=== PATIENT | female | born 1990 | race Caucasian/White ===

== ENCOUNTER 2024-05-22 19:41 | Outpatient (OUT) | payer BC, MEDICAID, SELFPAY | END 2024-05-22 19:42 | disposition home or self-care (01) | LOC: SLEEP 19:41 | PROVIDERS: PCP Psychiatry & Neurology Neurology; Visit Provider Psychiatry & Neurology Neurology | DX: G47.33 Obstructive sleep apnea (adult) (pediatric) (principal); G47.11 Idiopathic hypersomnia with long sleep time | CPT/HCPCS: 95810 ==

== ENCOUNTER 2024-06-20 21:00 | Outpatient (OUT) | payer BC, MEDICAID, SELFPAY ==
--- OUTSIDE RECORDS SUMMARY | 2024-06-20 21:03 | XMS_ITS | CCD ---
Author Organization [facility] Care Team Providers Care [place] Man Name Role Phone JASMIN LAST Attending Unavailable Medications Current Medications Medication Drug Class(es) Dates Sig (Normalized) Sig (Original) busPIRone hydrochloride 10 mg oral tablet (3 sources) Start: 11-11-2023 take 20 mg by mouth twice daily Buspirone Active 20 MG PO Twice daily November 11, 2023 12:00am clonazePAM 1 mg oral tablet (5 sources) Benzodiazepine Start: 02-03-2024 take 1 mg by mouth once daily Clonazepam Active 1 MG PO Daily February 03, 2024 12:00am Start: 11-11-2023 End: 11-11-2023 take 1 mg by mouth once daily at bedtime Clonazepam Discontinued 1 MG PO Daily at bedtime November 11, 2023 12:00am November 11, 2023 11:10am nystatin [id number] unt/ml topical cream (1 source) Polyene Antifungal Start: 02-15-2024 Nystatin Active 1 APPLIC TOPICAL Twice daily February 15, 2024 12:00am PARoxetine hydrochloride 40 mg oral tablet (3 sources) Serotonin Reuptake Inhibitor Start: 11-11-2023 take 40 mg by mouth once daily at bedtime Paroxetine Hcl Active 40 MG PO Daily at bedtime November 11, 2023 12:00am Completed/Discontinued Medications Medication Drug Class(es) Dates Sig (Normalized) Sig (Original) ALPRAZolam 0.5 mg oral tablet (5 sources) Benzodiazepine Start: 01-27-2024 End: 02-03-2024 take 1 tablet by mouth twice daily Alprazolam (Xanax) 0.5 mg tablet Discontinued 0.5 MG PO Twice daily 14 January 27, 2024 1:44pm February 03, 2024 1:43pm Start: 11-11-2023 End: 01-27-2024 take 1 tablet by mouth once daily Alprazolam (Xanax) 0.5 mg tablet Discontinued 0.5 MG PO Daily 06 14November 11, 2023 12:00am January 27, 2024 1:50pm amoxicillin 875 mg / clavulanate 125 mg oral tablet (2 sources) Penicillin-class Antibacterial Start: 02-03-2024 End: 02-15-2024 take 1 tablet by mouth twice daily Amoxicillin-Pot Clavulanate Discontinued 1 TAB PO Twice daily 04 06February 03, 2024 12:00am February 15, 2024 11:36am armodafinil 250 mg oral tablet (9 sources) Start: 11-11-2023 End: 02-11-2024 take 250 mg by mouth once daily in the morning Armodafinil Discontinued 250 MG PO Every morning November 11, 2023 11:12am December 31, 2023 9:11am Problems Problem Classification Problem Date Documented Da te Episodic/Chronic Abdominal pain (2 sources) Abdominal pain; Translations: [Unspecified abdominal pain] 02-15-2024 Episodic Anxiety disorders (20 sources) Generalized anxiety disorder; Translations: [Generalized anxiety disorder] 11-11-2023 Chronic Disorders of lipid metabolism (3 sources) Hyperlipidemia; Translations: [Hyperlipidemia, unspecified] 11-11-2023 Chronic Disorders of teeth and jaw (4 sources) Dental abscess; Translations: [Periapical abscess without sinus] 02-03-2024 Episodic Disorders usually diagnosed in infancy, childhood, or adolescence (6 sources) Autism spectrum disorder; Translations: [Autistic disorder] 11-11-2023 Chronic Impulse control disorders, NEC (6 sources) Trichotillomania; 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] 11-11-2023 Chronic Mood disorders (3 sources) Depressive disorder; Translations: [Depression] 11-11-2023 Chronic Mycoses (2 sources) Candidiasis; Translations: [Candidiasis, unspecified] 02-15-2024 Episodic Nausea and vomiting (2 sources) Nausea and vomiting; Translations: [Nausea with vomiting, unspecified] 02-15-2024 Episodic Other nervous system disorders (3 sources) Narcolepsy; Translations: [Narcolepsy without cataplexy] 11-11-2023 Chronic Other nervous system disorders (2 sources) Narcolepsy without cataplexy; Translations: [Narcolepsy, without cataplexy] 11-11-2023 Chronic Other nervous system disorders (2 sources) H/O: respiratory disease; Translations: [Personal history of other diseases of the nervous system and sense organs] 11-11-2023 Episodic Other nervous system disorders (1 source) Personal history of other diseases of the nervous system and sense organs; Translations: [Personal history of other specified diseases] 11-11-2023 Episodic Other nutritional; endocrine; and metabolic disorders (1 source) Altered appetite; Translations: [Other symptoms and signs concerning food and fluid intake] 02-15-2024 Episodic Other nutritional; endocrine; and metabolic disorders (1 source) Other symptoms and signs concerning food and fluid intake; Translations: [Other symptoms concerning nutrition, metabolism, and development] 02-15-2024 Episodic Residual codes; unclassified (2 sources) Hypersomnia; Translations: [Hypersomnia, unspecified] 11-11-2023 Chronic Residual codes; unclassified (1 source) Hypersomnia, unspecified; Translations: [Hypersomnia, unspecified] 11-11-2023 Chronic Vital Signs Date Time Vital Sign Value Performing Clinician Faci lity 02-15-2024 11:35-0400 Body height 167.64 cm [facility] 02-15-2024 11:35-0400 Diastolic blood pressure 78 mm[Hg] [facility] 02-15-2024 11:35-0400 Heart rate 80 /min [facility] 02-15-2024 11:35-0400 SaO2% (BldA) [Mass fraction] 98 % [facility] 02-15-2024 11:35-0400 Systolic blood pressure 128 mm[Hg] [facility] 02-03-2024 13:27-0400 Body height 167.64 cm [facility] 02-03-2024 13:27-0400 Diastolic blood pressure 80 mm[Hg] [facility] 02-03-2024 13:27-0400 Heart rate 76 /min [facility] 02-03-2024 13:27-0400 SaO2% (BldA) [Mass fraction] 98 % [facility] 02-03-2024 13:27-0400 Systolic blood pressure 124 mm[Hg] [facility] 11-11-2023 10:31-0400 Body height 167.64 cm [facility] 11-11-2023 10:31-0400 Body mass index (BMI) [Ratio] 47.2 kg/m2 [facility] 11-11-2023 10:31-0400 Body weight 132.9 kg [facility] 11-11-2023 10:31-0400 Diastolic blood pressure 84 mm[Hg] [facility] 11-11-2023 10:31-0400 Heart rate 72 /min [facility] 11-11-2023 10:31-0400 SaO2% (BldA) [Mass fraction] 98 % [facility] 11-11-2023 10:31-0400 Systolic blood pressure 122 mm[Hg] [facility] Encounters Encounter Date Encounter Type Care Provider Facility Start: 02-15-2024 End: 02-15-2024 ambulatory [facility] Work Phone: Start: 02-15-2024 End: 02-15-2024 Patient encounter procedure [facility] ys[facility] Work Phone: Start: 02-03-2024 End: 02-03-2024 ambulatory [facility] Work Phone: Start: 02-03-2024 End: 02-03-2024 Patient encounter procedure [facility] ysician [facility] Work Phone: Start: 12-21-2023 End: 12-21-2023 ambulatory JASMIN LAST Not Available Start: 11-11-2023 End: 11-11-2023 ambulatory [facility] Work Phone: Start: 11-11-2023 End: 11-11-2023 Patient encounter procedure [facility]sician [facility] Work Phone: Plan of Treatment Date Care Activity Detail Author Start: 02-03-2024 Patient referral [facility] Work Phone: CT Abdomen and Pelvi s WO and W contrast IV [facility] Patient referral [facility] Work Phone: Payers Date Payer Category Payer Medicaid [id number] 2023 Unknown [id number] 1990 Unknown [id number] Private Health Insurance [facility] [id number] Social History Date Type Detail Facility Start: 11-11-2023 Tobacco smoking stat [facility] Never smoked tobacco (finding) [facility] Start: 1990 Sex Assigned At Female F [facility] Discharge instructions 02-03-2024 Note Date & Type Note Facility 02-03-2024 Hospital Discharg e instructions Ambulatory OrdersReferral to Psychiatry Time Frame: 02/03/24, Location: None Selected [facility] Work Phone: Evaluation note Note Date & Type Note Facility Evaluation note Diagnosis Onset Date Generalized anxiety disorder acute Narcolepsy acute Panic disorder acute [facility] Work Phone: Evaluation note Note Date & Type Note Facility Evaluation note Diagnosis Onset Date Agoraphobia acute Autism acute Depression acute Generalized anxiety disorder acute History of sleep apnea acute Hyperlipidemia acute Narcolepsy acute OCD (obsessive compulsive disorder) acute Panic disorder acute Sleeping excessive acute Trichotillomania acute Autism acute Dental abscess acute Generalized anxiety disorder acute OCD (obsessive compulsive disorder) acute Panic attacks acute Panic disorder acute Trichotillomania acute [facility] Work Phone: Evaluation note Note Date & Type Note Facility Evaluation note Diagnosis Onset Date Autism acute Dental abscess acute Generalized anxiety disorder acute OCD (obsessive compulsive disorder) acute Panic attacks acute Panic disorder acute Trichotillomania acute Abdominal pain acute Alteration in appetite acute Marla infection acute Nausea & vomiting acute Trichotillomania acute [facility] Work Phone: Chief Complaint and Reason for Visit Chief Complaint establish Reason for Visit Generalized anxiety disorder Narcolepsy Panic disorder Chief Complaint establish anxiety Reason for Visit Agoraphobia Autism Depression Generalized anxiety disorder History of sleep apnea Hyperlipidemia Narcolepsy OCD (obsessive compulsive disorder) Panic disorder Sleeping excessive Trichotillomania Autism Dental abscess Generalized anxiety disorder OCD (obsessive compulsive disorder) Panic attacks Panic disorder Trichotillomania Chief Complaint anxiety stomach concerns Reason for Visit Autism Dental abscess Generalized anxiety disorder OCD (obsessive compulsive disorder) Panic attacks Panic disorder Trichotillomania Abdominal pain Alteration in appetite Marla infection Nausea & vomiting Trichotillomania Advance Directives Advance Directive Response Recorded Date/ Time Advance Directives No November 07 11:35am Summary Purpose Family History No Family History Records Found Additional Source Comments Care Teams (unrecognized sec tion and content) Team Status: Active Member Role Status Dates Fiona Coker APRN [employer] Primary Care Provider Active Team Status: Inactive Member Role Status Dates Fiona Coker APRN [employer] Primary Care Provider, Attending Provider Active Start: November 11, 2023 End: November 11, 2023 Team Status: Inactive Member Role Status Dates Fiona Coker APRN [employer] Primary Care Provider, Attending Provider Active Start: February 03, 2024 End: February 03, 2024 Team Status: Inactive Member Role Status Dates Fiona Coker APRN [employer] Primary Care Provider, Attending Provider Active Start: February 15, 2024 End: February 15, 2024 Goals (unrecognized section and content) Goals may be documented in a n alternate sectionGoals may be documented in an alternate sectionGoals may be documented in an alternate section INFORMATION SOURCE (unrecogn ized section and content) DATE CREATED AUTHOR 12/22/2023 [facility] FOR RECORDS PERTAINING TO PATIENTS WHO ARE OR HAVE BEEN ENROLLED IN A CHEMICAL DEPENDENCY/SUBSTANCEABUSE PROGRAM, SOME INFORMATION MAY BE OMITTED. This clinical summary was aggregated from multiple sources. Caution should be exercised in using it in the provision of clinical care. This summary normalizes information from multiple sources, and as a consequence, information in this document may materially change the coding, format and clinical context of patient data. In addition, data may be omitted in some cases. CLINICAL DECISIONS SHOULD BE BASED ON THE PRIMARY CLINICAL RECORDS. [facility]. provides no warranty or guarantee of the accuracy or completeness of information in this document.
== END 2024-06-20 21:01 | disposition home or self-care (01) ==
LOC: SLEEP 21:00
PROVIDERS: PCP Psychiatry & Neurology Neurology; Visit Provider Psychiatry & Neurology Neurology
DX: G47.33 Obstructive sleep apnea (adult) (pediatric) (principal)
CPT/HCPCS: 95811

== ENCOUNTER 2024-07-19 10:14 | Outpatient (OUT) | payer BC, MEDICAID, SELFPAY ==
--- OUTSIDE RECORDS SUMMARY | 2024-07-19 10:18 | XMS_ITS | CCD ---
Author Organization [facility] Inform ion Partnership [facility] Care Team Providers Care Binding Stitcher Name Role Phone Sheela CALVERT, Fiona Nicole Unavailable Unallocated , Noms Provider Primary Care Provi sendy Jasmin Last DO Unavailable JASMIN LAST Attending Unavailable JASMIN LAST Attending Unavailable Allergies Allergy Classification Reported Allergen(s) Allergy Type Date of Onset Reaction(s) Facility (3 sources) modafinil Drug Allergy 0 Itching, Rash [facility] (3 sources) Non-steroidal anti-inflammato ry agent Drug Intolerance 1 Unknown [facility] (3 sources) Norgestimate-Et h Estradiol Drug Intolerance 9 Nausea Only [facility] Medications Current Medications Medication Drug Class(es) Dates Sig (Normalized) Sig (Original) brexpiprazole 1 mg oral tablet (2 sources) Atypical Antipsychotic Brexpiprazole (Rexulti) 1 MG tablet Take 1 mg by mouth titrating Active busPIRone hydrochloride 10 mg oral tablet (6 sources) Start: 11-11-2023 take 20 mg by mouth twice daily Buspirone Active 20 MG PO Twice daily November 11, 2023 12:00am take 2 tablets by mouth in the m orning busPIRone (Buspar) 10 MG tablet Take 20 mg by mouth in the morning and 20 mg before bedtime. Active clonazePAM 1 mg oral tablet (8 sources) Benzodiazepine Start: 07-30-2023 End: 11-11-2023 take 1 mg by mouth once daily Clonazepam Active 1 MG PO Daily February 03, 2024 12:00am nystatin [id number] unt/ml topical cream (1 source) Polyene Antifungal Start: 02-15-2024 Nystatin Active 1 APPLIC TOPICAL Twice daily February 15, 2024 12:00am PARoxetine hydrochloride 40 mg oral tablet (6 sources) Serotonin Reuptake Inhibitor Start: 11-09-2023 take 1 tablet by mouth in the morning PARoxetine (Paxil) 40 MG tablet Take 40 mg by mouth in the morning. 11/09/2023 Active Completed/Discontinued Medications Medication Drug Class(es) Dates Sig (Normalized) Sig (Original) ALPRAZolam 0.5 mg oral tablet (8 sources) Benzodiazepine Start: 01-27-2024 End: 02-03-2024 take 1 tablet by mouth twice daily Alprazolam (Xanax) 0.5 mg tablet Discontinued 0.5 MG PO Twice daily 26 02January 27, 2024 1:44pm February 03, 2024 1:43pm Start: 11-11-2023 End: 01-27-2024 take 1 tablet by mouth once daily ALPRAZolam (Xanax) 0.5 MG tablet Take 0.5 mg by mouth Daily 11/11/2023 Active amoxicillin 875 mg / clavulanate 125 mg oral tablet (2 sources) Penicillin-class Antibacterial Start: 02-03-2024 End: 02-15-2024 take 1 tablet by mouth twice daily Amoxicillin-Pot Clavulanate Discontinued 1 TAB PO Twice daily 04 06February 03, 2024 12:00am February 15, 2024 11:36am armodafinil 250 mg oral tablet (12 sources) Start: 11-11-2023 End: 02-11-2024 take 250 [...] cataplexy] 11-11-2023 Chronic Other nervous system disorders (3 sources) Narcolepsy without cataplexy ; Translations: [Narcolepsy without cataplexy] Onset: 12-20-2023 12-20-2023 Chronic Other nervous system disorders (2 sources) Organic sleep-wake cycle disorder; Translations: [Circadian rhythm sleep disorder, unspecified type] 07-10-2024 Chronic Other nervous system disorders (2 sources) H/O: respiratory disease; Translations: [Personal history of other diseases of the nervous system and sense organs] 11-11-2023 Episodic Other nervous system disorders (1 source) Personal history of other diseases of the nervous system and sense organs; Translations: [Personal history of other specified diseases] 11-11-2023 Episodic Other nutritional; endocrine; and metabolic disorders (2 sources) Obesity caused by energy imbalance; Translations: [Other obesity due to excess calories] 07-10-2024 Chronic Other nutritional; endocrine; and metabolic disorders (1 source) Altered appetite; Translations: [Other symptoms and signs concerning food and fluid intake] 02-15-2024 Episodic Other nutritional; endocrine; and metabolic disorders (1 source) Other symptoms and signs concerning food and fluid intake; Translations: [Other symptoms concerning nutrition, metabolism, and development] 02-15-2024 Episodic Residual codes; unclassified (7 sources) Hypersomnia; Translations: [Hypersomnia, unspecified] Onset: 12-20-2023 11-11-2023 Chronic Residual codes; unclassified (1 source) Hypersomnia, unspecified; Translations: [Hypersomnia, unspecified] 11-11-2023 Chronic Residual codes; unclassified (3 sources) Daytime somnolence; Translations: [Other hypersomnia] Onset: 12-20-2023 12-20-2023 Chronic Residual codes; unclassified (4 sources) Obstructive sleep apnea syndrome; Translations: [Obstructive sleep apnea (adult) (pediatric)] 07-10-2024 Chronic Vital Signs Date Time Vital Sign Value Performing Clinician Richi emilyy 07-05-2024 14:14-0500 Body height 167.6 cm Jasmin Sandy DO Work Phone: [facility] 07-05-2024 14:14-0500 Body mass index (BMI) [Ratio] 47.84 kg/m2 Jasmin Sandy DO Work Phone: [facility] 07-05-2024 14:14-0500 Body weight 134.45 kg Jasmin Sandy DO Work Phone: [facility] 07-05-2024 14:14-0500 Diastolic blood pressure 94 mm[Hg] Jasmin Sandy DO Work Phone: [facility] 07-05-2024 14:14-0500 Heart rate 85 /min Jasmin Sandy DO Work Phone: [facility] 07-05-2024 14:14-0500 SaO2% (BldA) [Mass fraction] 96 % Jasmin Sandy DO Work Phone: [facility] 07-05-2024 14:14-0500 Systolic blood pressure 142 mm[Hg] Jasmin Sandy DO Work Phone: [facility] 02-15-2024 11:35-0400 Body height 167.64 cm [facility] 02-15-2024 11:35-0400 Diastolic blood pressure 78 mm[Hg] [facility] 02-15-2024 11:35-0400 Heart rate 80 /min [facility] 02-15-2024 11:35-0400 SaO2% (BldA) [Mass fraction] 98 % [facility] 02-15-2024 11:35-0400 Systolic blood pressure 128 mm[Hg] [facility] 02-03-2024 13:27-0400 Body height 167.64 cm [facility] 02-03-2024 13:27-0400 Diastolic blood pressure 80 mm[Hg] [facility] 02-03-2024 13:27-0400 Heart rate 76 /min [facility] 02-03-2024 13:27-0400 SaO2% (BldA) [Mass fraction] 98 % [facility] 02-03-2024 13:27-0400 Systolic blood pressure 124 mm[Hg] [facility] 11-11-2023 10:31-0400 Body height 167.64 cm [facility] 11-11-2023 10:31-0400 Body mass index (BMI) [Ratio] 47.2 kg/m2 [facility] 11-11-2023 10:31-0400 Body weight 132.9 kg [facility] 11-11-2023 10:31-0400 Diastolic blood pressure 84 mm[Hg] [facility] 11-11-2023 10:31-0400 Heart rate 72 /min [facility] 11-11-2023 10:31-0400 SaO2% (BldA) [Mass fraction] 98 % [facility] 11-11-2023 10:31-0400 Systolic blood pressure 122 mm[Hg] [facility] Encounters Encounter Date Encounter Type Care Provider Facility Start: 07-05-2024 End: 07-05-2024 Bamboo flowsheet Jasmin Sandy DO Work Phone: [facility] Start: 07-05-2024 End: 07-05-2024 Bamboo flowsheet Jasmin Sandy DO Work Phone: [facility] Start: 07-05-2024 End: 07-05-2024 Office outpatient visit 25 minutes Jasmin Sandy DO Work Phone: [facility] Comment on above: JOAN (obstructive sle ep apnea) (Primary Dx); Hypersomnia; Circadian rhythm sleep disorder; Obesity due to excess calories, unspecified class, unspecified whether serious comorbidity present Start: 07-05-2024 End: 07-05-2024 ambulatory JASMIN LAST Not Available Start: 02-15-2024 End: 02-15-2024 ambulatory [facility] Work Phone: Start: 02-15-2024 End: 02-15-2024 Patient encounter procedure [facility] Work Phone: Start: 02-03-2024 End: 02-03-2024 ambulatory [facility] Work Phone: Start: 02-03-2024 End: 02-03-2024 Patient encounter procedure [facility] Work Phone: Start: 12-21-2023 End: 12-21-2023 ambulatory JASMIN LAST Not Available Start: 11-11-2023 End: 11-11-2023 [facility] Work Phone: Start: 11-11-2023 End: 11-11-2023 Patient encounter procedure [facility] Work Phone: Plan of Treatment Date Care Activity Detail Author Start: 07-10-2024 End: 07-10-2025 Titration Study Titration Study Sleep Center Routine JOAN (obstructive sleep apnea) Expected: 07/10/2024 (Approximate), Expires: 07/10/2025 [facility] Work Phone: Comment on above: Expected: 07/10/2024 (Approximate), Expires: 07/10/2025 Start: 07-05-2024 End: 07-05-2024 Patient encounter procedure 07/05/2024 2:00 PM EST Office Visit [facility] [place] [address] Jasmin Last DO [address] [place] [address] [facility] Comment on above: Arrived Start: 04-16-2024 Influenza vaccination Influenz a Vaccine (#1) [facility] Start: 02-03-[address] [facility] Work Phone: Start: 2021 Screening for malign ant neoplasm of cervix [facility] Start: 2012 Screening for malign ant neoplasm of cervix Pap Smear [facility] CT Abdomen and Pelvi s WO and W contrast IV [facility] Patient referral [facility] Work Phone: Immunizations Immunization Date Immunization Notes Care Provider Fa cili 07-30-2023 influenza virus vacc ine, unspecified formulation Jasmin Last DO Work Phone: [facility] Healthcare Payers Date Payer Category [place] [id number] 2023 Medicaid [id number] 2023 [facility] [id number] 2023 Unknown [id number] 1991 Unknown [id number] 1991 Unknown [id number] Private Health Insurance [facility] [id number] Social History Date Type Detail Facility Start: 11-11-2023 End: 12-21-2023 Tobacco smoking status NHIS Never smoked tobacco (finding) [facility] Start: 1990 Sex Assigned At Female [facility] Start: 12-21-2023 Tobacco use and exposure Smokeless tobacco non-user [facility] Start: 12-21-2023 End: 07-05-2024 Alcoholic beverage intake Lifetime non-drinker (finding) [facility] Start: 12-21-2023 End: 07-05-2024 History of Social function [facility] Start: 12-21-2023 End: 07-05-2024 Tobacco use panel [facility] Start: 1990 Sex assigned at Not on file [facility] History of Present illness Narrative 07-05-2024 Jasmin LastDO - 07/05/2024 2:00 PM EST Note Date & Type Note Facility 07-05-2024 History of Presen t illness Narrative No chief complaint on file. Subjective Mary Samaniego, 34 y.o., female Patient is her post sleep study. The patient is here for diagnosis on JOAN. She had a mask previously and still had a lot of the daytime sleepiness. She can talk and scream in her sleep. She does not really act out her dreams. She is still sleepy during the day. She has not started to execise quite like she should but tries to keep set sleep schedules. Previous HX: . Mother states that she has never had an official diagnosis with narcolepsy. She states that she has always struggled with fatigue and falling asleep since she was a child. Mother states that she will be awake 2-3 hours out of the 24 hrs if she does not take the Nuvigil. After about 3 days it will lose its affect and she has to go off and on the medication. She states that she has been diagnosed with sleep apnea. Her initial sleep study was about 15 years ago. That was in [facility] she was on and off of the machine and stopped using. Her last sleep study was in 2020 in [facility]. She had lost some weight. . She failed using the cpap machine. Mother states that When she was able to use the sleep machine it did not control her daytime hypersomnia. Mother states that she has been on provigil since she was 14 years old and then was changed to nuvigil when it came out. She states that her psychiatrist Dr. Chavez (retired) had started her on the medications. She states that she did see a sleep doctor in [place], [place]. She states their name was Dr. Smith (retired). And also in [facility]. 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 No family history on file. Social History Tobacco Use Smoking status: Never Smokeless tobacco: Never Substance Use Topics Alcohol use: Never Allergies: Modafinil, Nsaids, and Norgestimate-eth estradiol General: No fever or chills HEENT: No nasal congestion or runny nose Pulmonary: No shortness of breath or cough Cardiovascular: No chest pain or palpitations GI: No nausea or vomiting : No dysuria or hematuria Musculoskeletal: No new aches or pains or muscle weakness Infectious: no recurrent fevers or infections Dermatologic: No rashes or skin lesions Neurologic: No new headaches or dizziness Vitals: 07/05/24 1414 BP: (!) 142/94 Pulse: 85 SpO2: 96% Body mass index is 47.84 kg/m . weight: 296 lb 6.4 oz \ The patient was counseled to monitor their blood pressure and to follow up with PCP regarding the same. Neurologic exam: Gen: Overweight Mental status: Awake, alert to person, place Recent and remote memory are intact. Attention and concentration are normal. Fund of knowledge: mild autism HEENT: NC/AT Cranial nerves: CN II: Visual acuity is normal. Visual farrar full to confrontation. CN III, IV, : pupils equal round and reactive to light. Extraocular movements intact. No ptosis present. CN V: Facial sensation is normal. CN VII: Full and symmetric facial movement. CN VIII: Hearing is normal CN IX and X: Palate elevates symmetrically. Normal gag reflex. CN XI: Shoulder shrug is normal bilaterally. CN XII: Tongue is midline without atrophy or fasciculation. Speech: Clear and fluent no aphasia or dysarthria Pronator drift: Negative bilateral upper extremity Coordination: Intact, no signs of dysmetria Good finger to nose and rapid alternating movements Sensory: Sensation is intact to light, temperature and vibratory touch throughout four extremities. Pinprick intact in all four extremities. Motor: LUE 5/5 RUE 5/5 LLE 5/5 RLE 5/5 Tone: Physiologic, no tremor, bradykinesia or rigidity DTR: Biceps, BR 2/4 Patellar 2/4 Gait: Normal to casual gait Romberg's Negative Assessment/Plan Diagnoses and all orders for this visit: JOAN (obstructive sleep apnea) - Titration Study; Future Hypersomnia Circadian rhythm sleep disorder Obesity due to excess calories, unspecified class, unspecified whether serious comorbidity present 34-year-old complicated female who comes in complaining of daytime hypersomnia. Patient has significant psychiatric issues including general anxiety disorder trichotillomania depression OCD agoraphobia and multiple other issues. She has been on the same psychiatric medicine for quite some time. 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 However she has significant daytime hypersomnia that appears to be cyclical. Patient did have a polysomnogram that showed a moderate obstructive sleep apnea with an AHI of 19. She had a poor sleep efficiency of only 46 percent with 3.6 hours of sleep therefore this may be more should she have had more sleep and deeper stages of sleep. For this reason she needs to be titrated on CPAP. She does have periodic limb movement disorder at 13 limb movements per hour. Some of this may be associated with the arousals I would like to see what this is like on a CPAP titration. She has been on either Provigil or Nuvigil, most recently Nuvigal However with this she should be treating her underlying sleep apnea and then determine if she needs a daytime wake medication. Once we have her sleep controlled and she is using a CPAP machine then we can better potentially do an MSLT to check for true narcolepsy. Have some inadequate sleep hygiene and poor sleep habits which she is working on She has underlying obesity which she has not been aggressive with trying to get under better control. Plan PSG was reviewed with them CPAP titration Once she is compliant with the machine we could potentially consider an MSLT She should set sleep schedules up during the day She knows she needs to be off of her Nuvigil for about 10 days prior to the sleep studies She is to try to get in some regular exercise and gradually accelerate that. This is not just to wake her up but also for over all health and weight loss The patient was counseled on the need for aggressive diet, exercise, and weight loss. We will decide on the next step in treatment once her sleep studies have been completed. Consider trial of Wakxis The diagnosis was all discussed with the patient. All questions were answered and they agreed with the treatment plan. Patient will call if there are any new issues or questions. Pt has been fully educated on their diagnosis, treatment options, follow up plan, and return instructions Return to clinic: 2 months. documented in this encounter [facility] Hospital Discharge instructions 02-03-2024 Note Date & Type Note Facility 02-03-2024 Hospital Discharg e instructions Ambulatory OrdersReferral to Psychiatry Time Frame: 02/03/24, Location: None Selected [facility] Work Phone: Evaluation note Note Date & Type Note Facility Evaluation note Diagnosis Onset Date Generalized anxiety disorder acute Narcolepsy acute Panic disorder acute [facility] Work Phone: Evaluation note Note [...] attacks acute Panic disorder acute Trichotillomania acute [facility] Work Phone: Evaluation note Note Date & Type Note Facility Evaluation note Diagnosis Onset Date Autism acute Dental abscess acute Generalized anxiety disorder acute OCD (obsessive compulsive disorder) acute Panic attacks acute Panic disorder acute Trichotillomania acute Abdominal pain acute Alteration in appetite acute Marla infection acute Nausea & vomiting acute Trichotillomania acute [facility] Work Phone: Evaluation note Note Date & Type Note Facility Evaluation note Diagnosis JOAN (obstructive sleep apnea)- Primary Obstructive sleep apnea (adult) (pediatric) Hypersomnia Hypersomnia, unspecified 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, unspecified Obesity due to excess calories, unspecified class, unspecified whether serious comorbidity present documented in this encounter [facility] Chief Complaint and Reason for Visit Chief [...] Member Role Status Dates Fiona Coker APRN NP-Gerard Primary Care Provider Active Team Status: Inactive Member Role Status Dates CORIN BessC Primary Care Provider, Attending Provider Active Start: November 11, 2023 End: November 11, 2023 Team Status: Inactive Member Role Status Dates Fiona Coker APRN NP-Gerard Primary Care Provider, Attending Provider Active Start: February 03, 2024 End: February 03, 2024 Team Status: Inactive Member Role Status Dates Fiona Coker APRN NP-C Primary Care Provider, Attending Provider Active Start: February 15, 2024 End: February 15, 2024 Binding Stitcher Relationship Specialty Start Date End Date Unallocated, Mercy Clemons MD [address] [place] [address] PCP - General Family Medicine 06/29/24 Fiona Coker NP [address] [place] [address] [place] [address] Referring Physician Family Medicine 12/21/23 Jasmin Last DO [address] [place] [address] Referring Physician Neurology 07/05/24 Binding Stitcher Relationship Specialty Start Date End Date Unallocated, Noms Provider, [place] [address] PCP - General Family Medicine 06/29/24 Fiona Coker NP [address] [place] [id number] Referring Physician Family Medicine 12/21/23 Jasmin Last DO [address] [place] [address] Referring Physician Neurology 07/05/24 Goals (unrecognized section and content) Goals may be documented in a n alternate sectionGoals may be documented in an alternate sectionGoals may be documented in an alternate section INFORMATION SOURCE (unrecogn ized section and content) DATE CREATED AUTHOR 07/08/2024 [facility] FOR RECORDS PERTAINING TO PATIENTS WHO [...] BE BASED ON THE PRIMARY CLINICAL RECORDS. [facility] [employer] [facility]. provides no warranty or guarantee of the accuracy or completeness of information in this document.
[2024-07-19 10:31] LABS: Basophils Absolute Auto 0.1 10^3/uL (0.0-0.1); Basophils Percent Auto 0.7 % (0.2-2.0); Eosinophils Absolute Auto 0.1 10^3/uL (0.0-0.7); Eosinophils Percent Auto 1.2 % (0.9-7.0); Hematocrit 34.5 % (36.0-48.0); Hemoglobin 10.9 g/dL (12.0-16.0); Immature Granulocytes Abs Auto 0.02 10^3/uL (0.00-0.03); Immature Granulocytes Pct Auto 0.3 % (0.0-0.5); Lymphocytes Absolute Auto 2.1 10^3/uL (1.2-3.8); Mean Corpuscular HGB Conc 31.6 g/dL (29.9-35.2); Mean Corpuscular Hemoglobin 23.6 pg (26.7-34.0); Mean Corpuscular Volume 74.7 fL (81.0-99.0); Mean Platelet Volume 10.5 fL (9.5-13.5); Monocytes Absolute Auto 0.6 10^3/uL (0.3-0.8); Monocytes Percent Auto 8.5 % (1.7-12.0); Neutrophils Absolute Auto 3.9 10^3/uL (1.4-6.5); Neutrophils Percent Auto 58.3 % (43.0-75.0); Platelet Count 284 10^3/uL (150-450); Red Blood Count 4.62 10^6/uL (4.20-5.40); Red Cell Distribution Width 14.4 % (11.0-15.0); White Blood Count 6.7 10^3/uL (4.0-11.0)
[2024-07-19 11:12] LABS: Alanine Aminotransferase 22 U/L (14-59); Albumin Level 3.3 g/dL (3.4-5.0); Alkaline Phosphatase 45 U/L (46-116); Anion Gap 12.4; Aspartate Amino Transferase 12 U/L (15-37); BUN Creatinine Ratio 21.8; Bilirubin Total 0.4 mg/dL (0.2-1.0); Calcium 8.5 mg/dL (8.5-10.1); Carbon Dioxide 27.6 mmol/L (21.0-32.0); Chloride 107 mmol/L (98-107); Estimated GFR (African America >60 (>=60 mL/min/1.73m^2); Estimated GFR (Non-African Ame >60 (>=60 mL/min/1.73m^2); Globulin 3.4 g/dL; Glucose 84 mg/dL (74-106); Sodium 143 mmol/L (136-145); Thyroid Stimulating Hormone 1.191 uIU/mL (0.358-3.740); Total Protein 6.7 g/dL (6.4-8.2)
[2024-07-19 11:25] LABS: Free T4 0.74 ng/dL (0.76-1.46)
== END 2024-07-19 10:15 | disposition home or self-care (01) ==
LOC: LAB 10:15
PROVIDERS: PCP Nurse Practitioner Family; Visit Provider Psychiatry & Neurology Psychiatry
DX: F40.01 Agoraphobia with panic disorder (principal); F84.0 Autistic disorder; G47.419 Narcolepsy without cataplexy; Z79.899 Other long term (current) drug therapy
CPT/HCPCS: 36415; 80053; 84439; 84443; 85025